=== PATIENT | female | born 1995 ===

== ENCOUNTER 2021-12-19 11:13 | Emergency (ER) | payer SELFPAY ==
[~2021-12-19] VITALS: Ht 152.4 cm; Wt 63.6 kg
[2021-12-19 11:25] VITALS: TEMP 98.3
[2021-12-19 11:55] LABS: COLLECTION METHOD CLEAN CATCH
[2021-12-19 12:04] LABS: MUCOUS Present (NOT PRESENT); PH 6 (5-8); SQUAMOUS EPITHELIAL 0-2 /hpf (0-10); URINE APPEARANCE Clear (CLEAR/HAZY); URINE BACTERIA Rare /hpf (NONE SEEN); URINE BLOOD 2+ (NEGATIVE); URINE COLOR Yellow (YELLOW); URINE GLUCOSE Negative (NEGATIVE); URINE KETONE Negative (NEGATIVE); URINE NITRATE Negative (NEGATIVE); URINE PROTEIN(semi-quant) Negative (NEGATIVE)
[2021-12-19] MEDS ORDERED: FLAGYL500 MG PO (12:16)
[2021-12-19] MEDS ORDERED: DOXYCYCLINE 10100 MG PO (12:16)
[2021-12-19 12:52] VITALS: BP 117/80; PULSE 74
== END 2021-12-19 12:53 | disposition home or self-care (01) ==
LOC: COL.ER 11:13
PROVIDERS: Physician Assistant
DX: N73.9 Female pelvic inflammatory disease, unspecified (principal); Z32.02 Encounter for pregnancy test, result negative
CPT/HCPCS: J0696